=== PATIENT | male | born 1975 | race Caucasian/White ===

== ENCOUNTER 2017-10-31 04:52 | Emergency (ER) | payer OTHER ==
[~2017-10-31] VITALS: Ht 170.2 cm; Wt 74.8 kg
[~2017-10-31 04:52] MED LIST: ACETAMINOPHEN-1 EAC1 PO; CARAFATE 1 GM TA1 G1 PO; CARAFATE 1 GM TA1 GM PO; FLEXERIL; FLEXERIL PO; HYDROCODON-ACE1 EAC7 PO; HYDROCODONE-AP1 EAC6 PO; IBUPROFEN 200200 M1 PO; IBUPROFEN 800800 M1 PO; IBUPROFEN 800800 MG PO; NORCO 5-325 TA1 EACH PO; OMEPRAZOLE 20 M20 M1 PO; PEPCID20 MG PO; PRILOSEC 20 MG20 MG PO
[2017-10-31] MEDS ORDERED: TORADOL 10 MG T10 MG PO (05:19)
[2017-10-31] MEDS ORDERED: CYCLOBENZAPRINE5 MG PO (05:19)
[2017-10-31 05:45] VITALS: BP 130/78
== END 2017-10-31 05:47 | disposition home or self-care (01) ==
LOC: M.ERS 04:52
DX: M54.5 Low back pain (principal); G89.29 Other chronic pain; Z88.5 Allergy status to narcotic agent

== ENCOUNTER 2018-10-14 03:30 | Emergency (ER) | payer OTHER ==
[~2018-10-14] VITALS: Ht 170.2 cm; Wt 63.5 kg
[~2018-10-14 03:30] MED LIST changes: +CYCLOBENZAPRINE5 MG PO; +TORADOL 10 MG T10 MG PO
[2018-10-14 03:54] LABS: ABSOLUTE BASOPHILS 0.1 thou/uL (0.0-0.2); ABSOLUTE EOSINOPHILS 0.1 thou/uL (0.0-0.7); ABSOLUTE LYMPHOCYTES 1.7 thou/uL (0.8-5.3); ABSOLUTE MONOCYTES 0.4 thou/uL (0.0-1.2); ABSOLUTE NEUTROPHILS 5.8 thou/uL (1.6-8.1); BASOPHILS 0.8 %; EOSINOPHILS 1.8 %; HEMATOCRIT 50.1 % (42.0-52.0); HEMOGLOBIN 17.8 gm/dL (14.0-18.0); LYMPHOCYTES 20.9 %; MCHC 35.5 g/dL (28.0-37.0); MCV 90.2 fL (80.0-100.0); MONOCYTES 5.5 %; MPV 8.2 fl. (7.2-11.1); NUCLEATED RBCS 0 /100WBC; PLATELET COUNT* 245 thou/uL (150-400); RBC 5.56 mil/uL (4.50-6.00); RDW-CV 12.8 % (10.5-14.5); WBC 8.1 thou/uL (4.0-11.0)
[2018-10-14 04:07] LABS: ANION GAP 0 mmol/L (7-16); BUN 6 mg/dL (7-18); CALCIUM 9.4 mg/dL (8.5-10.1); CHLORIDE 102 mmol/L (98-107); CO2 35 mmol/L (21-32); CREATININE 0.9 mg/dL (0.6-1.3); GLUCOSE 105 mg/dL (70-99); POTASSIUM 3.4 mmol/L (3.5-5.1); SODIUM 137 mmol/L (136-145)
[2018-10-14 04:15] LABS: URINE BILIRUBIN NEGATIVE (Negative); URINE BLOOD NEGATIVE (Negative); URINE CLARITY CLEAR; URINE COLOR YELLOW; URINE GLUCOSE-RANDOM NEGATIVE (Negative); URINE KETONES NEGATIVE (Negative); URINE LEUKOCYTES-REFLEX NEGATIVE (Negative); URINE NITRITE-REFLEX NEGATIVE (Negative); URINE PROTEIN NEGATIVE (Negative); URINE SPECIFIC GRAVITY 1.015 (1.005-1.030); URINE UROBILINOGEN 0.2 E.U./dl (0.2-1.0)
[2018-10-14 04:21] LABS: ALBUMIN 3.8 g/dL (3.4-5.0); ALKALINE PHOSPHATASE 62 U/L (46-116); LIPASE 314 U/L (73-393); SGOT 26 U/L (15-37); SGPT 35 U/L (30-65); TOTAL BILIRUBIN 0.4 mg/dL (<0.1-1.0); TOTAL PROTEIN 7.6 g/dL (6.4-8.2); TROPONIN-I LEVEL <0.06 ng/mL (<0.06)
[2018-10-14] MEDS ORDERED: CARAFATE 1 GM TA1 GM PO (04:34)
[2018-10-14] MEDS ORDERED: BENTYL 20 MG TA20 M1 PO (04:34)
[2018-10-14] MEDS ORDERED: VIBRAMYCIN 100100 MG PO (04:34)
[2018-10-14 05:35] VITALS: BP 117/74
--- NOTE | 2018-10-14 10:21 | EKG ---
[place] [address] ELECTROCARDIOGRAM REPORT Name: MARIANA WILLIAM JR Room: [facility]#: [id number] Admission: 10/14/18 Attend Phys: Discharge: 10/14/18 Date of : 73 Report #: [id number] THIS REPORT FOR: //name// [facility] ED Test Date: 2018-10-14 Test Time: 04:13:28 Pat Name: MARIANA WILLIAM Department: Room: Gender: M Java Sql Developer: ROSALIND : 1975 Requested By: Juanjo Penaloza Order Number: [id number] MD: Maxwell Connors Measurements Intervals [place] Rate: 65 P: 63 WV: 133 QRS: 65 QRSD: 94 T: 55 QT: 390 QTc: 406 Interpretive Statements Sinus rhythm ST elev, probable normal early repol pattern Baseline wander in lead(s) V5 Compared to ECG 08/20/2017 01:59:17 Sinus tachycardia no longer present Electronically Signed On 10-14-2018 10:21:31 AGENCY SERVICE REPRESENTATIVE by Maxwell Connors [email or web address] <ELECTRONICALLY SIGNED> By: Maxwell Connors MD, FAC 10/14/18 1021 0413 0413 Maxwell Connors MD, [facility] /EPI
== END 2018-10-14 05:36 | disposition home or self-care (01) ==
LOC: M.ERS 03:30
PROVIDERS: Emergency Medicine Emergency Medical Services
DX: N34.2 Other urethritis (principal); R10.13 Epigastric pain; R19.7 Diarrhea, unspecified; Z90.49 Acquired absence of other specified parts of digestive tract; Z88.5 Allergy status to narcotic agent; Z88.8 Allergy status to other drugs, medicaments and biological substances